=== PATIENT | female | born 1995 | race Caucasian/White ===

== ENCOUNTER 2017-05-27 18:39 | Outpatient (CLI) | payer SELFPAY ==
[2017-05-27 18:58] VITALS: BP 115/56
[2017-05-27 19:31] LABS: Bilirubin,Urine NEG (Negative); Blood,Urine NEG (Negative); Ketones,Urine TR mg/dL (Negative); Leukocyte Esterase,Urine SM (Negative); Mucus,Urine 1+ /HPF; Nitrite,Urine NEG (Negative); Urobilinogen,Urine < 2.0 mg/dL (<2.0)
[2017-05-27 19:46] LABS: Urine Drugs of Abuse Note Disclamer
[2017-05-27] MEDS ORDERED: LACTATED RINGERS 1,000 ML IV ONE (20:00)
== END 2017-05-27 20:14 | disposition home or self-care (01) ==
LOC: TRG 18:39
PROVIDERS: ATTEND Obstetrics & Gynecology
DX: O47.03 False labor before 37 completed weeks of gestation, third trimester (principal); Z3A.31 31 weeks gestation of pregnancy
CPT/HCPCS: 59025; 80307; 81001